=== PATIENT | female | born 1995 | race Caucasian/White ===

== ENCOUNTER 2018-11-05 19:03 | Emergency (ER) | payer SELFPAY ==
[2018-11-05] MEDS ORDERED: Aluminum Hydroxide/Magnesium Hydroxide/Simethicone Susp 30 ML Cup PO ONE (20:00)
--- NOTE | 2018-11-05 20:06 | EDM.PDOC ---
ED HPI GENERAL MEDICAL PROBLEM - General Chief Complaint: Gastrointestinal Problem Stated Complaint: TIGHTENING IN THROAT/CONCERNED ABOUT HEART Time Seen by Provider: 11/05/18 19:50 Source of Information: Reports: Patient, Old Records, RN History Limitations: Reports: No Limitations - History of Present Illness INITIAL COMMENTS - FREE TEXT/NARRATIVE: 23 yo female here with intermittent throat tightening. Admits to some anxiety. No self tx. Sx's for a few days and has not been to the clinic. Feels fine otherwise. 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: pre-eclampsia and Social & Family History - Family History Family Medical History: Noncontributory - Tobacco Use Smoking Status *Q: Never Smoker - Caffeine Use Caffeine Use: Reports: Coffee - Recreational Drug Use Recreational Drug Use: No ED ROS ENT - Review of Systems Review Of Systems: See Below Constitutional: Reports: No Symptoms HEENT: Reports: No Symptoms, Throat Pain (mild tightening intermittently.) Respiratory: Reports: No Symptoms Cardiovascular: Reports: No Symptoms Endocrine: Reports: No Symptoms GI/Abdominal: Reports: No Symptoms : Reports: No Symptoms Musculoskeletal: Reports: No Symptoms Skin: Reports: No Symptoms Neurological: Reports: No Symptoms Psychiatric: Reports: No Symptoms ED EXAM, ENT - Physical Exam Exam: See Below Exam Limited By: No Limitations General Appearance: Alert, WD/WN, No Apparent Distress Eye Exam: Bilateral Eye: Normal Inspection Ears: Normal External Exam, Normal Canal, Hearing Grossly Normal, Normal TMs Nose: Normal Inspection, No Blood Mouth/Throat: Normal Inspection, Normal Lips, Normal Oropharynx Head: Atraumatic, Normocephalic Neck: Normal Inspection, Supple, Non-Tender Respiratory/Chest: No Respiratory Distress, Lungs Clear, Normal Breath Sounds, No Accessory Muscle Use, Chest Non-Tender Cardiovascular: Regular Rate, Rhythm, No Edema GI/Abdominal: Normal Bowel Sounds, Soft, Non-Tender, No Distention Back: Normal Inspection. No: CVA Tenderness (R), CVA Tenderness (L) Extremities: Normal Inspection, Normal Range of Motion, Non-Tender, No Pedal Edema Neurological: Alert, Oriented, CN II-XII Intact, Normal Cognition, No Motor/ Sensory Deficits Psychiatric: Normal Affect, Normal Mood Skin: Warm, Dry, Intact, Normal Color, No Rash Lymphatic: No Adenopathy Course - Vital Signs Text/Narrative:: Has infrequent unifocal PVC's on the heart monitor that patient identifies as the source of her sx's. Maalox was given orally that did not significantly change her sx's. Last Recorded V/S: Last Vital Signs Temp 37.0 C 11/05/18 19:32 Pulse 87 11/05/18 19:32 Resp 18 11/05/18 19:32 BP 160/90 H 11/05/18 20:22 Pulse Ox 98 11/05/18 19:32 - Orders/Labs/Meds Meds: Medications Discontinued Medications Generic Name Dose Route Start Last Admin Trade Name Srikanthq PRN Reason Stop Dose Admin Al Hydroxide/Mg Hydroxide 30 ml 11/05/18 20:00 11/05/18 20:21 Mag-Al Plus PO 11/05/18 20:01 30 ml ONETIME ONE Administration Departure - Departure Time of Disposition: 20:36 Disposition: Home, Self-Care 01 Condition: Good Clinical Impression: Unifocal PVCs HTN (hypertension) Qualifiers: Hypertension type: unspecified Qualified Code(s): I10 - Essential (primary) hypertension Obesity Qualifiers: Obesity type: due to excess calories Obesity classification: adult class 3 ( BMI >= 40) Serious obesity comorbidity presence: without serious comorbidity Body mass index: BMI 45.0-49.9 Qualified Code(s): E66.01 - Morbid (severe) obesity due to excess calories; Z68.42 - Body mass index (BMI) 45.0-49.9, adult - Discharge Information *PRESCRIPTION DRUG MONITORING PROGRAM REVIEWED*: No *COPY OF PRESCRIPTION DRUG MONITORING REPORT IN PATIENT HILDA: No Instructions: Preventing Hypertension Referrals: Mera Parada MD [Primary Care Provider] - Forms: ED Department Discharge Additional Instructions: Avoid salt, caffeine, alcohol, tobacco, and concentrated sugars. Eat more fresh fruit/veggies. Recheck with your provider for a follow up on your BP and your unifocal PVC's. Return here if a lot worse and you can't get in to your provider. Get as much aerobic exercise as you can.
== END 2018-11-05 20:48 | disposition home or self-care (01) ==
LOC: JP.ED 19:03
DX: I49.3 Ventricular premature depolarization (principal); I10 Essential (primary) hypertension; E66.01 Morbid (severe) obesity due to excess calories; Z68.42 Body mass index [BMI] 45.0-49.9, adult
CPT/HCPCS: 99282; A9270; 99283

== ENCOUNTER 2020-02-28 19:21 | Emergency (ER) | payer MEDICAID ==
[2020-02-28] MEDS: Sodium Chloride 0.9% 10 ML Syringe FLUSH PRN ×2 (20:38→21:06)
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
[2020-02-28] MEDS ORDERED: Sodium Chloride 0.9% 80 ML IV SCH (21:00)
[2020-02-28] MEDS ORDERED: Iopamidol 612 MG/ML 100 ML Bottle IV SCH (21:00)
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
[2020-02-28] MEDS ORDERED: Dexamethasone 4 MG/ML SDV IVPUSH ONE (21:50)
== END 2020-02-28 22:04 | disposition home or self-care (01) ==
LOC: JP.ED 19:21
DX: S19.9XXA Unspecified injury of neck, initial encounter (principal); X58.XXXA Exposure to other specified factors, initial encounter; Y93.85 Activity, choking game
CPT/HCPCS: 36415; 70491; 80048; 84703; 96374; 99284; J1100; J7050; Q9967

== ENCOUNTER 2022-05-04 18:00 | Emergency (ER) | payer MEDICAID ==
[2022-05-04] MEDS ORDERED: amLODIPine 5 MG Tab PO ONE (18:55)
[2022-05-04] MEDS ORDERED: Acetaminophen 500 MG Tab PO ONE (20:08)
== END 2022-05-04 23:07 | disposition home or self-care (01) ==
LOC: JP.ED 18:00
DX: I10 Essential (primary) hypertension (principal); R51.9 Headache, unspecified; E66.01 Morbid (severe) obesity due to excess calories; Z79.899 Other long term (current) drug therapy
CPT/HCPCS: 36415; 70450; 80048; 81001; 85025; 99284; A9270

== ENCOUNTER 2023-01-16 18:58 | Emergency (ER) | payer MEDICAID ==
[2023-01-16] MEDS ORDERED: LORazepam 1 MG Tab PO ONE (20:52)
[2023-01-16] MEDS ORDERED: amLODIPine 5 MG Tab PO ONE (20:56)
== END 2023-01-16 22:02 | disposition home or self-care (01) ==
LOC: JP.ED 18:58
DX: F41.9 Anxiety disorder, unspecified (principal); I10 Essential (primary) hypertension; Z79.82 Long term (current) use of aspirin
CPT/HCPCS: 99283; A9270

== ENCOUNTER 2023-03-31 02:29 | Emergency (ER) | payer MEDICAID ==
[2023-03-31] MEDS ORDERED: Naloxone 0.4 MG/ML SDV IVPUSH PRN (03:06)
[2023-03-31] MEDS ORDERED: fentaNYL 50 MCG/ML SDV IVPUSH ONE (03:06)
[2023-03-31 03:09] LABS: BASOPHILS ABSOLUTE AUTO 0.05 K/uL (0.00-0.10); BASOPHILS PERCENT AUTO 0.3 % (0.1-1.3); EOSINOPHILS ABSOLUTE AUTO 0.04 K/uL (0.00-0.40); EOSINOPHILS PERCENT AUTO 0.3 % (0.0-5.4); HEMOGLOBIN 13.7 g/dL (11.2-15.5); IMMATURE GRAN ABSOLUTE AUTO 0.07 K/uL (0.00-0.23); IMMATURE GRAN PERCENT AUTO 0.5 % (0.0-0.7); LYMPHOCYTES ABSOLUTE AUTO 0.43 K/uL (0.8-3.3); LYMPHOCYTES PERCENT AUTO 2.9 % (11.4-47.7); MEAN CORPUSCULAR HEMOGLOBIN 28.4 pg (31.6-35.5); MEAN CORPUSCULAR HGB CONC 34.3 g/dL (31.6-35.5); MONOCYTES ABSOLUTE AUTO 0.66 K/uL (0.20-0.90); MONOCYTES PERCENT AUTO 4.5 % (3.3-12.6); NEUTROPHILS ABSOLUTE AUTO 13.39 K/uL (1.0-7.6); NEUTROPHILS PERCENT AUTO 91.5 % (40.0-78.1); PLATELET COUNT,PLT 233 K/uL (130-375); RED BLOOD CELL COUNT 4.82 M/uL (3.77-5.24); WHITE BLOOD CELL COUNT,WBC 14.6 K/uL (3.2-11.0)
[2023-03-31 03:31] LABS: A/G RATIO 0.8 (1.2-2.2); ALANINE AMINOTRANSFERASE,ALT 183 U/L (12-78); ALKALINE PHOSPHATASE 67 U/L (46-116); ANION GAP 13.8 mmol/L (5.0-14.0); ASPARTATE AMNIOTRANSFERASE,AST 181 U/L (15-37); BILIRUBIN TOTAL 0.4 mg/dL (0.2-1.0); BLOOD UREA NITROGEN,BUN 13 mg/dL (7-18); C-REACTIVE PROTEIN 0.53 mg/dL (0.0-0.3); CALCIUM 8.2 mg/dL (8.5-10.1); CARBON DIOXIDE,CO2 24 mmol/L (21-32); CHLORIDE,CL 102 mmol/L (100-108); CREATININE 0.9 mg/dL (0.6-1.0); ESTIMATED GFR 89 mL/min (>60); GLUCOSE RANDOM 115 mg/dL (74-106); POTASSIUM,K 3.8 mmol/L (3.6-5.2); SODIUM,NA 136 mmol/L (140-148)
[2023-03-31] MEDS ORDERED: Sodium Chloride 0.9% 50 ML IV STA (03:44)
[2023-03-31] MEDS ORDERED: Iopamidol 612 MG/ML 100 ML Bottle IV STA (03:44)
[2023-03-31] MEDS ORDERED: Sodium Chloride 0.9% 10 ML Syringe FLUSH STA (03:45)
[2023-03-31] MEDS ORDERED: Alum Hydrox/Mag Hydrox/Simeth 15 ML, Lidocaine 2% 15 ML PO ONE ×2 (05:25)
== END 2023-03-31 06:56 | disposition home or self-care (01) ==
LOC: JP.ED 02:29
DX: R10.13 Epigastric pain (principal); R10.11 Right upper quadrant pain; I10 Essential (primary) hypertension; E11.9 Type 2 diabetes mellitus without complications; M06.9 Rheumatoid arthritis, unspecified; Z86.16 Personal history of COVID-19; Z79.82 Long term (current) use of aspirin; Z79.899 Other long term (current) drug therapy
CPT/HCPCS: 36415; 74177; 76705; 80053; 83690; 85025; 86140; 96374; 99284; J3010; J3490; Q9967

== ENCOUNTER 2024-07-15 19:51 | Emergency (ER) | payer MEDICAID ==
[2024-07-15] MEDS: Cyclobenzaprine 10 MG Tab PO ONE (20:57)
[2024-07-15] MEDS: Ketorolac 30 MG/ML SDV IM ONE (20:57)
== END 2024-07-15 21:40 | disposition home or self-care (01) ==
LOC: JP.ED 19:51
DX: S16.1XXA Strain of muscle, fascia and tendon at neck level, initial encounter (principal); I10 Essential (primary) hypertension; E11.9 Type 2 diabetes mellitus without complications; Z86.16 Personal history of COVID-19; Z79.899 Other long term (current) drug therapy; W01.10XA Fall on same level from slipping, tripping and stumbling with subsequent striking against unspecified object, initial encounter
CPT/HCPCS: 96372; 99283; A9270; J1885